=== PATIENT | male | born 1995 | race Caucasian/White ===

== ENCOUNTER 2017-11-14 08:02 | Emergency (ER) | payer OTHER ==
[2017-11-14] MEDS ORDERED: ATARAX 25 MG PO ONE (08:19)
[2017-11-14] MEDS ORDERED: BABY ASPIRIN 81 MG CHEW PO ONE (08:20)
--- NOTE | 2017-11-14 08:26 | ERPHSYRPT ---
- History of Present Illness Time Seen by Provider: 11/14/17 08:07 Source: patient, family (onelia(accompanied by her service dog for anxiety)) Patient Subjective Stated Complaint: pt reports chest pain beginning a few hrs ago-states that his bp was high at home-reports pain is currently better-denies n/v-denies sob-reports headache Triage Nursing Assessment: pt pink warm and [id number] nonlabored-pt speaking in complete sentences with ease-radial pulse regular and strong Physician History: CC: high blood pressure Hx: 22 y/o patient of Dr Barriga. He reports chest pain this AM. He checked blood pressure which was elevated. As the BP became more elevated he was scared so came to ER. He has hx of HTN and was prescribed medication 6 months ago but decided not to take it. He quit smoking at the end of October. He has been trying to lose weight. No injury. No vomiting. No hx of prior heart disease. Denies drug use. Father reported heart disease but pt states he was a hypochondriatic. Timing/Duration: today Severity: mild Allergies/Adverse Reactions: Penicillins Allergy (Intermediate, Verified 11/14/17 08:16) Shortness of Breath Home Medications: No Reportable Medications [No Reported Medications] 11/14/17 [History] Hx Tetanus, Diphtheria Vaccination/Date Given: Yes Hx Influenza Vaccination/Date Given: No Hx Pneumococcal Vaccination/Date Given: No Immunizations Up to Date: Yes - Review of Systems Constitutional: No Fever, No Chills Eyes: No Symptoms Ears, Nose, & Throat: No Symptoms Respiratory: No Cough, No Dyspnea Cardiac: Chest Pain, No Edema, No Palpitations, No Syncope Abdominal/Gastrointestinal: No Abdominal Pain, No Nausea, No Vomiting Genitourinary Symptoms: No Dysuria Musculoskeletal: No Back Pain Skin: No Rash Neurological: No Headache All Other Systems: Reviewed and Negative - Past Medical History Pertinent Past Medical History: Yes Neurological History: No Pertinent History ENT History: No Pertinent History Cardiac History: Hypertension Respiratory History: Asthma Endocrine Medical History: No Pertinent History Musculoskeletal History: No Pertinent History GI Medical History: No Pertinent History History: No Pertinent History Psycho-Social History: No Pertinent History - Past Surgical History Past Surgical History: No Neuro Surgical History: No Pertinent History Cardiac: No Pertinent History Respiratory: No Pertinent History Gastrointestinal: No Pertinent History Genitourinary: No Pertinent History Musculoskeletal: No Pertinent History Male Surgical History: No Pertinent History - Social History Smoking Status: Never smoker How long have you smoked: 1 Exposure to second hand smoke: No Drug Use: none Patient Lives Alone: No - Nursing Vital Signs Nursing Vital Signs: Initial Vital Signs Temperature 97.6 F 11/14/17 08:05 Pulse Rate 88 11/14/17 08:05 Respiratory Rate 20 11/14/17 08:05 Blood Pressure 171/87 11/14/17 08:05 O2 Sat by Pulse Oximetry 100 11/14/17 08:05 Pain Scale Pain Intensity 2 - Physical Exam General Appearance: alert, obese, other (pleasant man) Eye Exam: PERRL/EOMI Ears, Nose, Throat Exam: normal ENT inspection Neck Exam: normal inspection, non-tender, supple Respiratory Exam: normal breath sounds, lungs clear Cardiovascular Exam: regular rate/rhythm Gastrointestinal/Abdomen Exam: soft, No tenderness, No distention Back Exam: normal inspection, normal range of motion Extremity Exam: normal inspection, normal range of motion Neurologic Exam: alert, oriented x 3, cooperative, internet marketer II-XII nml as tested, sensation nml, No motor deficits Skin Exam: warm, dry, No rash SpO2 Interpretation: normal SpO2: 100 Oxygen Delivery: Room Air - Course Nursing assessment & vital signs reviewed: Yes EKG Interpreted by Me: RATE (92), Sinus Rhythm, NORMAL AXIS, NORMAL INTERVALS ( QTc 411), NORMAL QRS, NORMAL ST-T - Radiology Exams cxr X-ray Interpretation: Teleradiologist Report, Negative Ordered Tests: Active Orders 24 hr Category Date Time Status EKG-ER Only STAT Care 11/14/17 08:07 Active IV Insertion STAT Care 11/14/17 08:19 Active CHEST 2 VIEWS (PA AND LAT) Stat Exams 11/14/17 08:19 Completed CBC W DIFF Stat Lab 11/14/17 08:37 Completed CMP Routine Lab 11/14/17 08:37 Completed TROPONIN Q3H Lab 11/14/17 08:37 Completed TROPONIN Q3H Lab 11/14/17 11:30 Ordered TROPONIN Q3H Lab 11/14/17 14:30 Ordered TROPONIN Q3H Lab 11/14/17 17:30 Ordered TROPONIN Q3H Lab 11/14/17 20:30 Ordered UA W/ MICROSCOPIC Stat Lab 11/14/17 09:21 Completed Urine Triage Profile Stat Lab 11/14/17 09:21 Completed Medication Summary Discontinued Medications Generic Name Dose Route Start Last Admin Trade Name Leandro PRN Reason Stop Dose Admin Aspirin 81 mg 11/14/17 08:20 11/14/17 08:46 Baby Aspirin 81 Mg Chew PO 11/14/17 08:21 81 mg STAT ONE Administration Aspirin Confirm 11/14/17 08:36 Baby Aspirin 81 Mg Chew Administered 11/14/17 08:37 Dose 81 mg .ROUTE .STK-MED ONE Hydroxyzine HCl 25 mg 11/14/17 08:19 11/14/17 08:46 Atarax 25 Mg PO 11/14/17 08:20 25 mg STAT ONE Administration Hydroxyzine HCl Confirm 11/14/17 08:36 Atarax 25 Mg Administered 11/14/17 08:37 Dose 25 mg .ROUTE .STK-MED ONE Lab/Rad Data: Laboratory Result Diagrams 11/14/17 08:37 11/14/17 08:37 Laboratory Results 11/14/17 11/14/17 11/14/17 Range/Units 09:21 09:21 08:37 WBC (4.0-10.5) K/mm3 RBC (4.1-5.6) M/mm3 Hgb (12.5-18.0) gm/dl Hct (42-50) % MCV (78-100) fl MCH (26-32) pg MCHC (32-36) g/dl RDW (11.5-14.0) % Plt Count (150-450) K/mm3 MPV (6-9.5) fl Gran % (36.0-66.0) % Lymphocytes % (24.0-44.0) % Monocytes % (0.0-12.0) % Eosinophils % (0.00-5.0) % Basophils % (0.0-0.4) % Basophils # (0-0.4) Sodium 139 (136-145) mEq/L Potassium 3.8 (3.5-5.1) mEq/L Chloride 104 (98-107) mEq/L Carbon Dioxide 24.8 (21-32) mEq/L Anion Gap 13.5 (5-15) MEQ/L BUN 13 (9-20) mg/dL Creatinine 0.79 (0.55-1.30) mg/dl Estimated GFR > 60 ML/MIN Glucose 81 (70-110) MG/DL Calcium 9.2 (8.5-10.1) mg/dL Total Bilirubin 0.40 (0.2-1.0) mg/dL AST 28 (15-37) U/L ALT 50 (12-78) U/L Alkaline Phosphatase 79 (46-116) U/L Troponin I < 0.017 (0.000-0.056) ng/ml Serum Total Protein 7.6 (6.4-8.2) gm/dL Albumin 3.8 (3.4-5.0) g/dL Ur Collection Type VOID Urine Color YELLOW (YELLOW) Urine Appearance CLEAR (CLEAR) Urine pH 7.0 (5-6) Ur Specific [place] 1.005 (1.005-1.025) Urine Protein NEGATIVE (Negative) Urine Ketones NEGATIVE (NEGATIVE) Urine Blood 5-10 (0-5) Harsh/ul Urine Nitrite NEGATIVE (NEGATIVE) Urine Bilirubin NEGATIVE (NEGATIVE) Urine Urobilinogen NORMAL (0-1) mg/dL Ur Leukocyte Esterase NEGATIVE (NEGATIVE) Urine Microscopic RBC 0-2 (0-2) /HPF Urine Bacteria RARE (NEGATIVE) /HPF Urine Culture Reflexed NO (NO) Urine Glucose NEGATIVE (NEGATIVE) mg/dL Urine Opiates Level NEG. (NEGATIVE) Ur Methadone NEG. (NEGATIVE) Urine Barbiturates NEG. (NEGATIVE) Ur Phencyclidine (PCP) NEG. (NEGATIVE) Urine Amphetamine NEG. (NEGATIVE) U Benzodiazepine Level NEG. (NEGATIVE) Urine Cocaine NEG. (NEGATIVE) Urine Marijuana (THC) NEG. (NEGATIVE) Specimen Received 11/14/17 0930 11/14/17 Range/Units 08:37 WBC 13.6 H (4.0-10.5) K/mm3 RBC 5.02 (4.1-5.6) M/mm3 Hgb 14.7 (12.5-18.0) gm/dl Hct 43.0 (42-50) % MCV 85.7 (78-100) fl MCH 29.3 (26-32) pg MCHC 34.2 (32-36) g/dl RDW 13.0 (11.5-14.0) % Plt Count 323 (150-450) K/mm3 MPV 8.8 (6-9.5) fl Gran % 63.0 (36.0-66.0) % Lymphocytes % 25.4 (24.0-44.0) % Monocytes % 9.3 (0.0-12.0) % Eosinophils % 1.8 (0.00-5.0) % Basophils % 0.5 (0.0-0.4) % Basophils # 0.07 (0-0.4) Sodium (136-145) mEq/L Potassium (3.5-5.1) mEq/L Chloride (98-107) mEq/L Carbon Dioxide (21-32) mEq/L Anion Gap (5-15) MEQ/L BUN (9-20) mg/dL Creatinine (0.55-1.30) mg/dl Estimated GFR ML/MIN Glucose (70-110) MG/DL Calcium (8.5-10.1) mg/dL Total Bilirubin (0.2-1.0) mg/dL AST (15-37) U/L ALT (12-78) U/L Alkaline Phosphatase (46-116) U/L Troponin I (0.000-0.056) ng/ml Serum Total Protein (6.4-8.2) gm/dL Albumin (3.4-5.0) g/dL Ur Collection Type Urine Color (YELLOW) Urine Appearance (CLEAR) Urine pH (5-6) Ur Specific [place] (1.005-1.025) Urine Protein (Negative) Urine Ketones (NEGATIVE) Urine Blood (0-5) Harsh/ul Urine Nitrite (NEGATIVE) Urine Bilirubin (NEGATIVE) Urine Urobilinogen (0-1) mg/dL Ur Leukocyte Esterase (NEGATIVE) Urine Microscopic RBC (0-2) /HPF Urine Bacteria (NEGATIVE) /HPF Urine Culture Reflexed (NO) Urine Glucose (NEGATIVE) mg/dL Urine Opiates Level (NEGATIVE) Ur Methadone (NEGATIVE) Urine Barbiturates (NEGATIVE) Ur Phencyclidine (PCP) (NEGATIVE) Urine Amphetamine (NEGATIVE) U Benzodiazepine Level (NEGATIVE) Urine Cocaine (NEGATIVE) Urine Marijuana (THC) (NEGATIVE) Specimen Received - Progress Progress Note: 11/14/17 08:26 Discussed lifestyle modifications including need for shelter BP control, tobacco avoidance, weight loss. Reassurance given. 11/14/17 09:45 He is feeling better. No pain. Drinking ice water. Discussed SUZIE and he was advised to talk to Dr Monahan about possible sleep apnea which might contribute. BP markedly improved and he is without symptoms at present. 11/14/17 10:01 He is stable and asymptomatic. Advised follow up this week with Dr Barriga and no driving today. Counseled pt/family regarding: lab results, diagnosis, need for follow-up, rad results, smoking cessation - Departure Time of Disposition: 10:02 Departure Disposition: Home Clinical Impression: Chest pain, Hypertension, Morbid obesity Condition: Stable Critical Care Time: No Referrals: TYLER BARRIGA [NON-STAFF PHY W/O PRIVILEGES] - Instructions: Chest Pain (DC), High Blood Pressure (DC), Obesity, Adult (DC) Additional Instructions: No driving today. See Dr Sharma this week for recheck and to restart your blood pressure medications. Continue no smoking. Return for problems or concerns.
[2017-11-14] MEDS ORDERED: ATARAX 25 MG ONE (08:36)
[2017-11-14] MEDS ORDERED: BABY ASPIRIN 81 MG CHEW ONE (08:36)
[2017-11-14 08:42] LABS: BASOPHIL % 0.5 % (0.0-0.4); Basophil (Absolute #) 0.07 (0-0.4); Eosinophil % 1.8 % (0.00-5.0); Eosinophil (Absolute #) 0.24 (0-0.5); Granulocyte Absolute (ANC) 8.59 (1.4-6.9); Hemoglobin 14.7 gm/dl (12.5-18.0); Lymphocyte (Absolute #) 3.46 (1.0-4.6); Lymphocytes % 25.4 % (24.0-44.0); Mean Cell Volume 85.7 fl (78-100); Mean Corpuscular Hemoglobin 29.3 pg (26-32); Mean Corpuscular Hgb Concent. 34.2 g/dl (32-36); Mean Platelet Volume 8.8 fl (6-9.5); Monocyte (Absolute #) 1.26 (0.0-1.3); Monocytes % 9.3 % (0.0-12.0); Platelet Count 323 K/mm3 (150-450); Red Blood Count 5.02 M/mm3 (4.1-5.6); White Blood Count 13.6 K/mm3 (4.0-10.5)
--- NOTE | 2017-11-14 09:06 | XRAY ---
Indication: Chest pain. Hypertension. Comparison: July 08, 2013. PA/lateral chest again demonstrates normal heart, lungs, and bony thorax.
[2017-11-14 09:08] LABS: ALBUMIN 3.8 g/dL (3.4-5.0); ALKALINE PHOSPHATASE 79 U/L (46-116); ANION GAP 13.5 MEQ/L (5-15); BLOOD UREA NITROGEN 13 mg/dL (9-20); CHLORIDE 104 mEq/L (98-107); Calcium 9.2 mg/dL (8.5-10.1); Carbon Dioxide 24.8 mEq/L (21-32); Creatinine 1 0.79 mg/dl (0.55-1.30); EST GLOMERULAR FILTRATION RATE > 60 ML/MIN; Glucose 81 MG/DL (70-110); Potassium 3.8 mEq/L (3.5-5.1); SGOT/AST 28 U/L (15-37); SGPT/ALT 50 U/L (12-78); SODIUM 139 mEq/L (136-145); Total Protein 7.6 gm/dL (6.4-8.2)
[2017-11-14 09:14] LABS: TROPONIN < 0.017 ng/ml (0.000-0.056)
[2017-11-14 09:50] LABS: Appearance CLEAR (CLEAR); Bilirubin NEGATIVE (NEGATIVE); Glucose NEGATIVE (NEGATIVE); Ketones NEGATIVE (NEGATIVE); Leukocyte Esterase NEGATIVE (NEGATIVE); Nitrite NEGATIVE (NEGATIVE); Protein,Urine Dip NEGATIVE (Negative); Specific Gravity 1.005 (1.005-1.025); Urobilinogen NORMAL mg/dL (0-1)
[2017-11-14 09:51] LABS: Bacteria RARE /HPF (NEGATIVE)
[2017-11-14 09:56] LABS: Amphetamine,Urine NEG. (NEGATIVE); Barbiturate,Urine NEG. (NEGATIVE); Benzodiazepine,Urine NEG. (NEGATIVE); Cocaine,Urine NEG. (NEGATIVE); Methadone,Urine NEG. (NEGATIVE); Opiate,Urine NEG. (NEGATIVE); PCP,Urine NEG. (NEGATIVE); THC,Urine NEG. (NEGATIVE)
[2017-11-14 10:07] VITALS: BP 132/91; PULSE 61; O2SAT 97
== END 2017-11-14 10:22 | disposition home or self-care (01) ==
LOC: ED 08:02
DX: I10 Essential (primary) hypertension (principal); E66.01 Morbid (severe) obesity due to excess calories
CPT/HCPCS: 36000; 36415; 71046; 80053; 80307; 81000; 84484; 85025; 93005; 99284; A9270-GY

== ENCOUNTER 2018-09-14 18:55 | Emergency (ER) | payer OTHER ==
[2018-09-14] MEDS ORDERED: HIBICLENS 4% Scrub TOP ONE (20:15)
[2018-09-14] MEDS ORDERED: Rocephin 1000 MG INJ IM ONE (20:25)
--- NOTE | 2018-09-14 20:25 | ERPHSYRPT ---
- History of Present Illness Time Seen by Provider: 09/14/18 20:22 Source: patient Exam Limitations: no limitations Patient Subjective Stated Complaint: pt states while cooking, the hot oil overflowed and he got it on his lt hand when he grabbed the fischer Triage Nursing Assessment: pt alert and oriented, answers questions aprop. pt ambulatory with steady gait noted. respirations nonlabored with lungs cta. redness and blisters noted to top of lt thumb and index finger. Physician History: patient states while cooking, the hot oil overflowed and he got it on his lt hand when he grabbed the fischer redness and blisters noted to top of lt thumb and index finger. Occurred: just prior to arrival Method of Injury: burn Severity of Pain-Max: mild Severity of Pain-Current: mild Extremities Pain Location: hand: left Allergies/Adverse Reactions: Penicillins Allergy (Intermediate, Verified 09/14/18 19:40) Shortness of Breath Hx Tetanus, Diphtheria Vaccination/Date Given: Yes Hx Influenza Vaccination/Date Given: No Hx Pneumococcal Vaccination/Date Given: No Immunizations Up to Date: Yes - Review of Systems Constitutional: No Symptoms Eyes: No Symptoms Ears, Nose, & Throat: No Symptoms Respiratory: No Symptoms Cardiac: No Symptoms Abdominal/Gastrointestinal: No Symptoms Genitourinary Symptoms: No Symptoms Musculoskeletal: No Symptoms Skin: Other (blisters on index finger) - Past Medical History Pertinent Past Medical History: Yes Neurological History: No Pertinent History ENT History: No Pertinent History Cardiac History: Hypertension Respiratory History: Asthma Endocrine Medical History: No Pertinent History Musculoskeletal History: No Pertinent History GI Medical History: No Pertinent History History: No Pertinent History Psycho-Social History: No Pertinent History - Past Surgical History Past Surgical History: No Neuro Surgical History: No Pertinent History Cardiac: No Pertinent History Respiratory: No Pertinent History Gastrointestinal: No Pertinent History Genitourinary: No Pertinent History Musculoskeletal: No Pertinent History Male Surgical History: No Pertinent History - Social History Smoking Status: Current every day smoker How long have you smoked: 1 Exposure to second hand smoke: No Drug Use: none Patient Lives Alone: No - Nursing Vital Signs Nursing Vital Signs: Initial Vital Signs Pulse Rate 85 09/14/18 19:33 Respiratory Rate 18 09/14/18 19:33 Blood Pressure 165/96 09/14/18 19:33 O2 Sat by Pulse Oximetry 100 09/14/18 19:33 Pain Scale Pain Intensity 8 - Physical Exam General Appearance: no apparent distress Eyes, Ears, Nose, Throat Exam: normal ENT inspection Neck Exam: normal inspection Cardiovascular/Respiratory Exam: chest non-tender Abdominal Exam: non-tender Hand Exam: soft tissue tenderness, swelling (blister formation on thumb and index finger left hand) SpO2: 100 Oxygen Delivery: Room Air - Course Nursing assessment & vital signs reviewed: Yes Ordered Tests: Medication Summary Discontinued Medications Generic Name Dose Route Start Last Admin Trade Name Leandro PRN Reason Stop Dose Admin Bacitracin Zinc 0.9 gm 09/14/18 20:30 Baciguent Packet TP 09/14/18 20:31 STAT ONE Ceftriaxone Sodium 1,000 mg 09/14/18 20:25 Rocephin 1000 Mg Inj IM 09/14/18 20:26 STAT ONE Chlorhexidine Gluconate 15 ml 09/14/18 20:15 09/14/18 20:16 Hibiclens 4% Scrub TOP 09/14/18 20:16 15 ml ONCE ONE Administration - Progress Progress: improved Progress Note: 09/14/18 20:40 left thumb and index finger dressing done, bacitracin applied. rocephin 1 gm IM given Counseled pt/family regarding: diagnosis, need for follow-up - Departure Time of Disposition: 20:44 Departure Disposition: Home Clinical Impression: Burn by hot liquid Condition: Stable Critical Care Time: No Referrals: SIMONE DEVLIN [Primary Care Provider] - Instructions: Skin Kline, Debridement of a Wound or Burn (DC) Additional Instructions: KLINE 1. Do not burst any blisters. 2. Change the dressings as directed by the emergency department physician. 3. If antibiotics are prescribed, take them as directed until gone. 4. If instructed to do so, see your family physician for a wound check. 5. Call your family physician or return to the emergency department for any signs of infection such as: A. Redness B. Swelling C. Discolored drainage D. Red streaks E. Elevated temperature Prescriptions: Bacitracin/Polymyxin B Sulfate [Bacitracin-Polymyxin Ointment] 15 gm TP DAILY # 30 oint...g. Smz/Tmp Ds Tablet [Bactrim Ds Tablet] 1 udtab PO BID #20 tablet
[2018-09-14] MEDS ORDERED: BACIGUENT PACKET TP ONE (20:30)
[2018-09-14] MEDS ORDERED: Rocephin 1000 MG INJ ONE (20:38)
[2018-09-14] MEDS ORDERED: BACIGUENT PACKET ONE (20:38)
[2018-09-14 21:13] VITALS: BP 117/78; PULSE 82; O2SAT 97
== END 2018-09-14 21:10 | disposition home or self-care (01) ==
LOC: ED 18:55
DX: T23.242A Burn of second degree of multiple left fingers (nail), including thumb, initial encounter (principal); X10.2XXA Contact with fats and cooking oils, initial encounter; Y93.G3 Activity, cooking and baking; Y92.000 Kitchen of unspecified non-institutional (private) residence as the place of occurrence of the external cause
CPT/HCPCS: 96372; 99283; J0696; A9270-GY

== ENCOUNTER 2023-04-28 14:52 | Emergency (ER) | payer OTHER ==
--- NOTE | 2023-04-28 15:44 | ERPHSYRPT ---
- History of Present Illness Time Seen by Provider: 04/28/23 15:15 Historian: patient, family Exam Limitations: no limitations Patient Subjective Stated Complaint: Pt states "I have and umbilical hernica and today I noticed a white liquid in my belly button and I was nauseated." Triage Nursing Assessment: PT presented alert and oriented x 3, skin pwd. PT ambulates with an upright steady gait, able to speak in clear full senteneces. Pt abdomen is tender. Physician History: Patient is a 28-year-old white male who states that he has had a umbilical hernia diagnosed when he was an infant he says that he has had 2 episodes where his hernia has bothered him he said this last year occasion was 715. He was nauseous she has vomited x1 and noted a white discharge from his umbilicus. He is quite obese and palpating the umbilical hernia takes the entire length of a normal index finger. Quality: throbbing Abdominal Pain Onset Location: periumbilical Pain Radiation: periumbilical Severity of Pain-Max: moderate Severity of Pain-Current: moderate Modifying Factors: Improves With: nothing Associated Symptoms: nausea, vomiting Allergies/Adverse Reactions: Penicillins Allergy (Intermediate, Verified 09/14/18 19:40) Shortness of Breath Home Medications: No Reportable Medications [No Reported Medications] 04/28/23 [History] Hx Tetanus, Diphtheria Vaccination/Date Given: Yes Hx Influenza Vaccination/Date Given: No Hx Pneumococcal Vaccination/Date Given: No Immunizations Up to Date: Yes Travel Risk - International Travel Have you traveled outside of the country in past 3 weeks: No - Coronavirus Screening Are you exhibiting any of the following symptoms?: No Close contact with a COVID-19 positive Pt in past 14-21 Days: No - Vaccine Status Have you recieved a Covid-19 vaccination: No - Review of Systems Constitutional: No Fever, No Chills Eyes: No Symptoms Ears, Nose, & Throat: No Symptoms Respiratory: No Cough, No Dyspnea Cardiac: No Chest Pain, No Edema, No Syncope Abdominal/Gastrointestinal: Abdominal Pain, No Nausea, No Vomiting, No Diarrhea Genitourinary Symptoms: No Dysuria Musculoskeletal: No Back Pain, No Neck Pain Skin: No Rash Neurological: No Dizziness, No Focal Weakness, No Sensory Changes Psychological: No Symptoms Endocrine: No Symptoms All Other Systems: Reviewed and Negative - Past Medical History Pertinent Past Medical History: Yes Neurological History: No Pertinent History ENT History: No Pertinent History Cardiac History: Hypertension Respiratory History: Asthma Endocrine Medical History: No Pertinent History Musculoskeletal History: No Pertinent History GI Medical History: No Pertinent History History: No Pertinent History Psycho-Social History: No Pertinent History - Past Surgical History Past Surgical History: No Neuro Surgical History: No Pertinent History Cardiac: No Pertinent History Respiratory: No Pertinent History Gastrointestinal: No Pertinent History Genitourinary: No Pertinent History Musculoskeletal: No Pertinent History Male Surgical History: No Pertinent History - Social History Smoking Status: Current every day smoker How long have you smoked: 1 Exposure to second hand smoke: No Drug Use: none Patient Lives Alone: No - Nursing Vital Signs Nursing Vital Signs: Initial Vital Signs Temperature 98.9 F 04/28/23 15:02 Pulse Rate 97 H 04/28/23 15:02 Respiratory Rate 22 04/28/23 15:02 Blood Pressure 164/99 04/28/23 15:02 O2 Sat by Pulse Oximetry 99 04/28/23 15:02 Pain Scale Pain Intensity 2 - Physical Exam General Appearance: no apparent distress, alert Eye Exam: PERRL/EOMI, eyes nml inspection Ears, Nose, Throat Exam: normal ENT inspection, pharynx normal, moist mucous membranes Neck Exam: normal inspection, non-tender, supple, full range of motion Respiratory Exam: normal breath sounds, lungs clear, No respiratory distress Cardiovascular Exam: regular rate/rhythm, normal heart sounds Gastrointestinal/Abdomen Exam: soft, tenderness (Tenderness with digital exploration of the umbilicus), other (Exploring the umbilicus with a autoscope there does appear to be an area of an inflammation in the depth of the umbilicus but this can is not well visualized.), No mass Back Exam: normal inspection, normal range of motion, No CVA tenderness, No vertebral tenderness Extremity Exam: normal inspection, normal range of motion, pelvis stable Neurologic Exam: alert, oriented x 3, cooperative, normal mood/affect, nml cerebellar function, sensation nml, No motor deficits Skin Exam: normal color, warm, dry SpO2 Interpretation: normal SpO2: 99 O2 Delivery: Room Air - Course Nursing assessment & vital signs reviewed: Yes - CT Exams Abdomen/Pelvis CT Interpretation: Other (CT scan shows an umbilical hernia no sign of cellulitis or other infective process) Ordered Tests: Active Orders 24 hr Category Date Time Status ABDOMEN AND PELVIS W CONTRAST [CT] Stat Exams 04/28/23 15:21 Completed - Progress Progress: unchanged Medical Desision Making - Diagnostic Testing Radiological Interpretation: Reviewed by me - Risk of complications Minimal Risk: Minimal risk of morbidity The pt has a mod risk of morbidity or mortality based on: Need for minor surgical intervention in patient with know risk factors (Patient will get in contact with his general surgeon on Monday and hopefully get repair of his umbilical hernia performed.) - Departure Departure Disposition: Home Clinical Impression: Umbilical hernia Condition: Stable Critical Care Time: No Referrals: ELIDIA SHANNON NP [Primary Care Provider] - Follow up/PCP as directed Instructions: Abdominal Hernia Repair (DC)
--- NOTE | 2023-04-28 16:11 | XRAY ---
Indication: Hernia versus omphalitis. Multiple contiguous axial images obtained through the abdomen and pelvis using 80 cc Isovue 370 contrast. Comparison: January 11, 2015 Lung bases clear. Heart not enlarged. Noncontrasted stomach and bowel loops nonobstructed with normal appendix. Again diffuse fatty liver. No free fluid/air. Remaining liver, gallbladder, pancreas, spleen, adrenal glands, kidneys, ureters, bladder, and aorta are unremarkable. No pathologic retroperitoneal lymphadenopathy. Osseous structures intact. New small fatty umbilical hernia. Impression: Fatty liver and new small fatty umbilical hernia. Remaining CT abdomen/pelvis with contrast exam continues to be negative.
[2023-04-28 16:23] VITALS: BP 151/73
[2023-04-28 17:03] VITALS: PULSE 77; RESP 20; TEMP 97.5; O2SAT 98
== END 2023-04-28 17:08 | disposition home or self-care (01) ==
LOC: ED 14:52
DX: K42.9 Umbilical hernia without obstruction or gangrene (principal); R11.2 Nausea with vomiting, unspecified; I10 Essential (primary) hypertension; Z28.310 Unvaccinated for COVID-19; Z72.0 Tobacco use
CPT/HCPCS: 74177; 99283